=== PATIENT | male | born 1940 | race Caucasian/White ===

== ENCOUNTER 2018-01-18 10:09 | Outpatient (CLI) | payer MEDICARE, SELFPAY ==
[2018-01-18 13:00] LABS: CREATININE 1.08 mg/dL (0.70-1.30); Potassium 4.2 mmol/L (3.5-5.1)
== END 2018-01-18 10:29 ==
PROVIDERS: PCP Family Medicine; Visit Provider Family Medicine
DX: I10 Essential (primary) hypertension (principal)
CPT/HCPCS: 36415; 82565; 84132

== ENCOUNTER 2018-05-24 14:18 | Emergency (ER) | payer MEDICARE, SELFPAY ==
[2018-05-24 14:29] VITALS: BP 137/65; PULSE 88; RESP 16; TEMP 36.8; O2SAT 96
--- NOTE | 2018-05-24 14:36 | W.ED.GENAD ---
Discharge Plan Disposition Patient Disposition: HOME Condition: Stable Discharge Details Chief Complaint: Orthopedic Clinical Impression: Contusion of right hip Primary Care Provider: Jomar Merrill ED Provider: Constantino Aquino Home Meds and New Rx's Prescriptions: No Action lovastatin 40 mg tablet 40 mg PO DAILY Qty: 90 RF: 3 lisinopril-hydrochlorothiazide 10-12.5 mg tablet 1 tab PO DAILY RF: 0 polyethylene glycol 3350 [Miralax] 119 GM powder 17 gm PO daily prn RF: 0 ascorbic acid (vitamin C) [Vitamin C] 500 MG tablet 500 mg PO BID Qty: 1 RF: 0 aspirin [Aspir-81] 81 MG tablet,delayed release (DR/EC) 81 mg PO DAILY RF: 0 A Thru Z High Potency 1 EACH tablet 1 ea PO DAILY RF: 0 Discharge Instructions Instructions: Contusion in Adults (ED) Additional Instructions: Based on your exam you likely have a bone bruise. If symptoms continue in one week see your primary care provider If you feel your pain is significantly worsening or you have abodminal pain, severe headaches or persistent vomit return to the emergency department You can take 1000mg tylenol and 600mg ibuprofen every 6 hours for pain as needed Medical Decision Making pt states he slipped on his porch landing from standing height on his right hip, did not fall down stairs and did not strike head or have loc, no n/v since. He has pain over lateral right hip. Is bearing weight and has full rom, has point tenderness over lateral right hip, no back tenderness, no neck pain or abdominal pain. given ability to tolerate beraing weight and full rom doubt fracture and after discussion with pt he declines xray at this time which I feel is reasonable. Do not feel head or c spine imaging indicated. Will d/c home and advised f/u with pcp and return precautions given Differential Diagnosis contusion, sprain, fx HPI General Mode of arrival: ambulatory. Date/Time Provider Initiated Documentation: 05/24/18 14:18. Limitations to Documentation: no limitations. Information obtained by: patient. History of Present Illness 78 year old M presents to the emergency department with the chief complaint of right hip pain, described as moderate, with intensity rated at 5. Quality is described as aching, and is localized to the right and lower extremity. Patient reports no radiation. Patient started experiencing this hour(s) (2) and it has been constant. Rest improves symptom(s), Movement worsens symptoms . Patient notes no other symptoms.. Patient did receive the following treatments prior to arrival, none Related Data Home Medications Medication Instructions Recorded Confirmed [id number] [A 1 ea PO DAILY 04/23/14 05/24/18 Thru Z Advanced Formula Tab] polyethylene glycol 3350 [Miralax] 17 gm PO daily prn 06/24/16 05/24/18 ascorbic acid (vitamin C) [Vitamin 500 mg PO BID #1 08/09/16 05/24/18 C] aspirin [Aspir 81] 81 mg PO DAILY tab-cap 07/28/17 05/24/18 lovastatin 40 mg tablet 40 mg PO DAILY #90 tab-cap 01/18/18 05/24/18 lisinopril 10 1 tab PO DAILY 04/20/18 05/24/18 mg-hydrochlorothiazide 12.5 mg tablet Previous Rx's Medication Instructions Recorded lovastatin 40 mg tablet 40 mg PO DAILY #90 tab-cap 01/18/18 Allergies Allergy/AdvReac Type Severity Reaction Status Date / Time Iodinated Contrast- Oral and Allergy Severe Swelling/Ed Unverified 05/24/18 14:32 IV Dye melva sertraline Allergy Severe Suicidal Unverified 05/24/18 14:32 ideation General Stated Complaint: Orthopedic VINCE: 4 Review of Systems Review of Systems All systems reviewed & are unremarkable except as noted in HPI and below Constitutional Denies chills and Denies fever(s) ENT Denies change in voice Cardiovascular Denies chest pain and Denies dyspnea Respiratory Denies cough and Denies dyspnea Gastrointestinal Denies abdominal pain, Denies nausea and Denies vomiting Musculoskeletal Denies joint swelling [facility] Social History Smoking and Tabacco status: Former Tobacco Use Exam Const General: no acute distress Orientation: alert HENMT Head: normal to inspection Ears: external ears normal General nose exam: external nose normal Mouth: moist mucous membranes Eyes General: appearance normal, both eyes and all related structures Neck Neck: normal visual inspection Resp Effort & Inspection: normal respiratory effort and able to speak in complete sentences Cardio Rate: regular rate Skin General skin exam: no rashes or lesions noted Neuro General: alert and oriented x3 Extrem General: normal to inspection Psych Mental Status: mental status grossly normal Course Vital Signs Temperature 36.8 C 05/24/18 14:29 Pulse 88 05/24/18 14:29 Respiratory Rate 16 05/24/18 14:29 Blood Pressure 137/65 05/24/18 14:29 Pulse Oximetry 96 05/24/18 14:29 Temperature 36.8 C 05/24/18 14:29 Temperature Source Skin 05/24/18 14:29 Pulse 88 05/24/18 14:29 Respiratory Rate 16 05/24/18 14:29 Respiratory Effort Non-Labored 05/24/18 14:29 Blood Pressure 137/65 05/24/18 14:29 Blood Pressure Position Sitting 05/24/18 14:29 Pulse Oximetry 96 05/24/18 14:29 Oxygen Delivery Method Room Air 05/24/18 14:29 Oxygen Flow Rate 0 05/24/18 14:29 End Tidal Co2 0 05/24/18 14:29
== END 2018-05-24 15:57 | disposition home or self-care (01) ==
LOC: ER 15:05
PROVIDERS: Emergency Provider Emergency Medicine; PCP Family Medicine
DX: S70.01XA Contusion of right hip, initial encounter (principal); W01.0XXA Fall on same level from slipping, tripping and stumbling without subsequent striking against object, initial encounter
CPT/HCPCS: 99282

== ENCOUNTER 2019-03-15 08:45 | Outpatient (CLI) | payer MEDICARE, SELFPAY ==
[2019-03-15 12:25] LABS: CREATININE 1.14 mg/dL (0.70-1.30); Potassium 4.1 mmol/L (3.5-5.1); Vitamin B12 522 pg/mL (193-986)
== END 2019-03-15 09:05 ==
PROVIDERS: PCP Family Medicine; Visit Provider Family Medicine
DX: I10 Essential (primary) hypertension (principal); R26.9 Unspecified abnormalities of gait and mobility
CPT/HCPCS: 36415; 82565; 82607; 84132

== ENCOUNTER 2020-01-21 01:48 | Outpatient (CLI) | payer MEDICARE, SELFPAY ==
[2020-01-21 12:59] LABS: CREATININE 1.07 mg/dL (0.70-1.30); Calculated LDL 176 mg/dL (<100); Cholesterol 259 mg/dL (<200); HDL Cholesterol 55 mg/dL (40-60); Potassium 3.7 mmol/L (3.5-5.1); Triglyceride 142 mg/dL (<150)
== END 2020-01-21 02:08 ==
PROVIDERS: PCP Family Medicine; Visit Provider Family Medicine
DX: I10 Essential (primary) hypertension (principal); E78.5 Hyperlipidemia, unspecified
CPT/HCPCS: 36415; 80061; 82565; 84132

== ENCOUNTER 2020-09-29 03:13 | Outpatient (CLI) | payer MEDICARE, SELFPAY ==
[2020-09-29 09:53] LABS: Calculated LDL 122 mg/dL (<100); Cholesterol 186 mg/dL (<200); HDL Cholesterol 50 mg/dL (40-60); Triglyceride 71 mg/dL (<150)
== END 2020-09-29 03:14 | disposition home or self-care (01) ==
LOC: LBO 03:13
PROVIDERS: PCP Family Medicine; Visit Provider Family Medicine
DX: E78.5 Hyperlipidemia, unspecified (principal)
CPT/HCPCS: 36415; 80061

== ENCOUNTER 2021-06-28 03:25 | Outpatient (CLI) | payer OTHER, SELFPAY ==
[2021-06-28 15:46] LABS: Potassium 3.9 mmol/L (3.5-5.1)
== END 2021-06-28 03:26 | disposition home or self-care (01) ==
LOC: LBO 03:25
PROVIDERS: PCP Family Medicine; Visit Provider Family Medicine
DX: I10 Essential (primary) hypertension (principal)
CPT/HCPCS: 36415; 82565; 84132

== ENCOUNTER 2022-04-29 00:53 | Outpatient (CLI) | payer MEDICARE, SELFPAY ==
--- NOTE | 2022-04-29 07:45 | DI.US_ITS ---
Exam(s) US RENAL EXAM: US RENAL CLINICAL HISTORY: urinary frequency and stool incontinencE,LT FLANK PAIN,R10.9. TECHNIQUE: Regalado scale, color and spectral Doppler were used. COMPARISON: No exams were available for comparison FINDINGS: Renal size in cm: Right: 12.7. Left: 12.5. Echogenicity: Normal. Hydronephrosis: No. Cyst or mass: There is a 2.7 x 1.2 x 2.6 cm simple cyst in the right kidney. Nephrolithiasis: No. Other findings: None. Bladder:Normal. Ureteral jets: Right: Not visualized on this examination. Left: Not visualized on this examination. Prevoid vol:165 cc Postvoid vol:98 cc Prostate: 113 cc Renal color flow: Symmetric and within normal limits. IMPRESSION: 1. No evidence of nephrolithiasis or hydronephrosis. 2. Enlarged prostate gland. DATA REPOSITORY:
== END 2022-04-29 01:13 ==
LOC: DI 00:53
PROVIDERS: PCP Family Medicine; Visit Provider Family Medicine
DX: N40.0 Benign prostatic hyperplasia without lower urinary tract symptoms (principal); R10.9 Unspecified abdominal pain
CPT/HCPCS: 76770

== ENCOUNTER 2022-06-29 11:07 | Outpatient (CLI) | payer MEDICARE, SELFPAY ==
[2022-06-29 12:50] LABS: CREATININE 1.2 mg/dL (0.70-1.30); Estimated GFR 59.63 (mL/min/1.73m2); Potassium 4.5 mmol/L (3.5-5.1)
== END 2022-06-29 11:08 | disposition home or self-care (01) ==
LOC: LOS 11:07
PROVIDERS: PCP Family Medicine; Referring Provider Family Medicine; Visit Provider Family Medicine
DX: I10 Essential (primary) hypertension (principal)
CPT/HCPCS: 36415; 82565; 84132

== ENCOUNTER 2023-07-21 14:51 | Outpatient (REF) | payer MEDICARE, SELFPAY | END 2023-07-21 14:52 | disposition home or self-care (01) | LOC: LBN 14:51 | PROVIDERS: PCP Family Medicine; Visit Provider Nurse Practitioner Family | DX: R30.0 Dysuria (principal) | CPT/HCPCS: 87086 ==

== ENCOUNTER 2024-01-09 03:34 | Outpatient (CLI) | payer MEDICARE, SELFPAY ==
[2024-01-09 12:58] LABS: CREATININE 1.2 mg/dL (0.70-1.30); Estimated GFR 59.26 (mL/min/1.73m2); Potassium 4.3 mmol/L (3.5-5.1)
== END 2024-01-09 03:35 | disposition home or self-care (01) ==
LOC: LOS 03:34
PROVIDERS: PCP Family Medicine; Visit Provider Family Medicine
DX: I10 Essential (primary) hypertension (principal)
CPT/HCPCS: 36415; 82565; 84132